=== PATIENT | female | born 1965 | race Caucasian/White ===

== ENCOUNTER 2018-05-06 08:15 | Outpatient (CLI) | payer OTHER ==
--- NOTE | 2018-05-06 10:55 | MRI ---
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 COMPARISON: None. TECHNIQUE: Multiplanar, multisequence MR images were obtained of the right wrist. FINDINGS: There are surface markers placed along the dorsal aspect of the wrist. There is prominent osteonecro sis and fragmentation of the lunate. No definite osteonecrosis is seen involving the capitate. Ther e is moderate collapse of the lunate. There is some mild proximal migration of the capitate. The sc apholunate and lunatotriquetral ligaments are intact. The extrinsic ligaments appear intact. There is some diffuse edema within the capitate, which may reflect reactive marrow edema. The scaphoid dani ears within normal limits. The carpal tunnel and its contents are normal appearing. The extensor te ndons appears within normal limits. A small amount of fluid is seen within the EDC extensor tendon s jese. The FCR and FCU tendons appear within normal limits. There is a nonspecific subchondral cyst like abnormality involving the radial aspect of the ring finger metacarpal head. The TFC appears in tact. IMPRESSION: 1. Osteonecrosis of the lunate with fragmentation. 2. Mild reactive edema in the capitate. 3. Mild extensor digitorum comminus tenosynovitis, which is likely reactive in nature. POS: [facility]
== END 2018-05-06 08:16 | disposition home or self-care (01) ==
LOC: MRI 08:15
PROVIDERS: ATTEND Orthopaedic Surgery Hand Surgery
DX: M93.1 Kienbock's disease of adults (principal); R60.0 Localized edema; M65.88 Other synovitis and tenosynovitis, other site

== ENCOUNTER 2018-05-13 10:26 | Day surgery (SDC) | payer OTHER ==
[2018-05-12 10:32] VITALS: BMI 25.1
[2018-05-13] MEDS ORDERED: Fentanyl 100 MCG/2 ML VIAL ONE ×2 (11:06→12:28)
[2018-05-13] MEDS ORDERED: Midazolam HCl 2 mg/2 ml Vial ONE (11:06)
--- NOTE | 2018-05-13 11:29 | RAD ---
PA AND LATERAL CHEST RADIOGRAPH: Date: 05-13-18 History: Pre-operative exam. Comparison: 03-29-10 FINDINGS: Cardiac silhouette and pulmonary vasculature are within normal limits. The lungs remain clear. Mild d egenerative changes are seen in the spine. IMPRESSION: No acute cardiopulmonary process. POS: [facility]
[2018-05-13 11:31] LABS: #Basophils 0.1 thou/uL (0.0-0.2); #Eosinphils 0.5 thou/uL (0.0-0.7); #Monocytes 0.4 thou/uL (0.11-0.59); #Neutrophils 3.4 thou/uL (1.40-6.50); %Basophils 1.2 % (0.0-1.0); %Eosinophils 7.2 % (0.0-10.0); %Lymphocytes 40.1 % (21.0-51.0); %Neutrophils 45.6 % (42.0-75.0); Hemoglobin 14.3 g/dL (12.0-16.0); Mean Corpuscular HGB CONC 34.5 g/dL (32.0-36.0); Mean Corpuscular Hemoglobin 30.6 pg (27.0-31.0); Mean Corpuscular Volume 88.8 fL (78.0-98.0); Mean Platelet Volume 6.9 fL (7.4-10.4); Platelet Count 294 thou/uL (130-400); RBC Distribution Width 11.8 % (11.5-14.5); Red Blood Cell (RBC) Count 4.68 mill/uL (4.20-5.40); White Blood Cell (WBC) Count 7.4 thou/uL (4.8-10.8)
[2018-05-13 11:56] LABS: Anion Gap 12 mmol/L (10-20); BUN (Urea Nitrogen) 21 mg/dL (9.8-20.1); Calc. Creatinine Clearance 112 mL/min (70-130); Calcium 9.9 mg/dL (7.8-10.44); Carbon Dioxide 23 mmol/L (22-29); Chloride 107 mmol/L (98-107); Estimated GFR-MDRD 84; Glucose 105 mg/dL (70-105); Potassium 4.4 mmol/L (3.5-5.1); Sodium 138 mmol/L (136-145)
[2018-05-13] MEDS ORDERED: HYDROmorphone 0.5 MG/0.5 ML SYRINGE ONE (12:28)
[2018-05-13 13:18] LABS: Bilirubin Negative (Negative); Blood, Urine Negative (Negative); Clarity CLEAR (Clear); Glucose, Urine (Dipstick) Negative (Negative); Leukocyte Moderate (Negative); Nitrite Negative (Negative); Protein, Urine (Dipstick) Negative (Neg-Trace); Specific Gravity, Urine 1.026 (1.002-1.036); Urobilinogen 0.2 mg/dL (0.2-1.0)
[2018-05-13 13:21] LABS: Bacteria/HPF 1+ HPF (None Seen); Hyaline Casts/LPF 0-3 HYALINE CAST LPF (0-3 Hyaline); Squamous Epithelial 0-3 HPF (0-3)
[2018-05-13] MEDS ORDERED: Sodium Chloride 0.9% 0 ML ONE (13:28)
[2018-05-13] MEDS ORDERED: Gentamicin 80 MG/2 ML VIAL ONE ×2 (13:28→17:17)
[2018-05-13] MEDS ORDERED: Bacitracin Zinc Ointment 30 gm TUBE ONE (13:53)
[2018-05-13 15:24] LABS: Bilirubin Negative (Negative); Blood, Urine Negative (Negative); Clarity CLEAR (Clear); Glucose, Urine (Dipstick) Negative (Negative); Leukocyte Negative (Negative); Nitrite Negative (Negative); Protein, Urine (Dipstick) Negative (Neg-Trace); Specific Gravity, Urine 1.027 (1.002-1.036); Urobilinogen 0.2 mg/dL (0.2-1.0); pH, Urine 5.5 (5.0-9.0)
[2018-05-13 15:26] LABS: Bacteria/HPF 3+ HPF (None Seen); Hyaline Casts/LPF 0-3 HYALINE CAST LPF (0-3 Hyaline); Pathc Cast-AUWi Flag 0.14 (0-2.49); RBC/HPF 0-3 HPF (0-3); Squamous Epithelial 0-3 HPF (0-3); WBC/HPF 0-3 HPF (0-3)
[2018-05-13] MEDS ORDERED: Ketorolac Tromethamine 30 MG/ML VIAL ONE (18:28)
--- NOTE | 2018-05-13 19:13 | RAD ---
RIGHT WRIST: 05/13/18 Series of nine fluoroscopic images from OR presented. INDICATION: Intraoperative imaging during internal fixation procedure. Right wrist osteotomy and bone graft proce dure. FINDINGS/IMPRESSION: Images demonstrate intraoperative changes at the wrist with hardware and surgical clips placed during operative procedure. POS: [facility]
--- NOTE | 2018-05-16 10:08 | OP ---
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 OPERATIVE FINDINGS: 1. Marked osteonecrosis with a necrotic hard bone occupying most of the lunate with fragmentation pa lmarly but the chondral surface of the radiolunate and lunate with capitate joint intact. 2. Already has some collapse of the bone, but not of the carpus itself. PROCEDURES PERFORMED: 1. Open lunate debridement. 2. Open vascularized bone graft harvest from the 4-5 extra compartmental artery system and the bone graft size was 2.0 cm long x 6 mm wide with excellent vascular pedicle, then maintained itself during the transfer after implantation. 3. Joint unloading via scaphocapitate pinning, adri under interaction. 4. C-arm supervision. ANESTHESIA: Excellent block along with general endotracheal anesthesia. Intraoperatively, post justin ent had a small amount of bacteria in her urine, which was treated by gentamicin but she did not have nitrites or other indicatives of active urinary tract infection with catheter urinalysis. URINE OUTPUT: Diggs throughout, 750 mL. TOURNIQUET TIME: 120 minutes. BLOOD LOSS: 25 mL. DESCRIPTION OF PROCEDURE: After successful block with only minimal general anesthesia, patient's miller b was prepped and draped. We did not use Marcaine because of block. Then brought the C-arm into the field confirmed that she had Dr. Giang, who operating the correct khadra e with his right, to consent and a time out as well as the records. We also noted the joint was essentially level as we seen in the last radiographs in clinic and althou consented for a shortening osteotomy, this may not be indicated if we going to achieve an excellen t vascularized bone graft. We then exsanguinated the limb only with elevation to achieve somewhat of a venous tourniquet, so we could better identify the vessels. We then made a zigzag incision centered over the space between Li ster's tubercle and the ulnar styloid, complicated the skin, subcutaneous tissue, and opened the reti naculum over the center of the extensor digiti minimi, then dissected it really to expose the fourth dorsal compartment as well. Here, on the very radial aspect of the base of the floor of the fifth do rsal compartment, we found the fifth extra compartmental arterial branch and followed it to where it made a Y, where it made a connection into the anterior interosseous. Then from here, we saw a shorte r version that went into the base of the bone of the ulnar aspect of the fourth dorsal compartment. We removed all compartments. Contents of the fourth ray of the common visualized the extensor pollic is longus were protected, and then began almost 1-hour slow careful harvesting of bone graft with rose ntenance of a vascular pedicle. Once we had done this, we then elevated the pedicle completely from its bed, it measured almost 2 cm long, had excellent bleeding even with the venous tourniquet, and th en we were able to put it back in its bed as we approached the lunate itself. A small V-shaped capsulotomy was performed beginning just radial to the pedicle distal base, and we t hen identified the entire lunate, scapholunate joint and the scaphocapitate joint as well as the radi us lunate joint. The lunate surface with all three articulations and excellent chondral surface, but it could immediately be seen on this dorsum, there was some necrotic indentations. Using the C-arm immediately, we placed a guidewire for 3-0 cannulated screw into a central position in the frontal an d sagittal plane. We noted the fragmentation palmarly and did not violate it. We then drilled 2.5, 3.0, then used a 3.5 drill bit under T-handle control as to radiographic evidenc e to create a channel. From here, we made sure, we did not violate mid carpal joint and therefore we had more loose necrotic bone to remove via curet debridement. Once this was done, we then took some bone from the bed of the harvested bone graft, placed it deep in the cavity where the large bone gra ft did not fit, then placed some more dorsal and palmar to this graft. We then placed the graft in p alec position with thinnest part now, widest part at the top, buried approximately 1 mm into the cavi ty of the lunate, observed ithe pedicle and still had excellent refill and the bone was still bleedin g. We already had a deflated tourniquet at this point, obtain hemostasis, and left a hole in the capsule of approximately 5 mm, so that the pedicle would not be compressed. We then closed the capsule gent ly with interrupted [id number] #[id number] Ethibonds and an OS-4 needle. We then took some harvested bone graft from the cadaver bone soaked in the blood for [address] aced it in the defect, created by the extra-compartmental vascularized bone graft harvest. Now, we h ad this completely filled and radiograph showed that it was filled appropriately without fracture. W e have determined because now, we visualized the third time that the joint was level, so we did not w ant to create a defect, and therefore we then placed the arm back into inline traction, from here wit h approximately 10-15 pounds of pressure distracted, were placed 4-5 K-wires from the scaphoid to the capitate, unload the capitolunate joint and then the patient was prepared for this closure. We irrigated the wound, closed the retinaculum with a 2-0 Vicryl undyed, closed the subcutaneous tiss ue with 3-0 undyed Monocryl, and then closed the epidermis with interrupted 4-[address]. [address] then [address] d the arm back in traction and completed the scaphocapitate pins x2 with excellent form of the sagitt al plane position. Bulky dressing was applied sterilely. The patient had a sugar-tong splint applie d, left the operating room without evidence of anesthetic or operative complication.
== END 2018-05-13 19:40 | disposition home or self-care (01) ==
LOC: SDC 10:26
PROVIDERS: ATTEND Orthopaedic Surgery Hand Surgery
PROC: 0XU Anatomical Regions, Upper Extremities, Supplement (ICD-10-PCS; principal; 2018-05-13)
PROC: 0PBH0ZZ Excision of Right Radius, Open Approach (ICD-10-PCS; principal; 2018-05-13)
DX: M92.211 Osteochondrosis (juvenile) of carpal lunate [Kienbock], right hand (principal); I10 Essential (primary) hypertension; M19.90 Unspecified osteoarthritis, unspecified site; G43.909 Migraine, unspecified, not intractable, without status migrainosus; Z79.899 Other long term (current) drug therapy
CPT/HCPCS: 36415; 71046; 76001; 80048; 81003; 81015; 85025; 87077; 87086; 87186; 93005; 93010; J1170; J1580; J1885; J2250; J3010; J3490; J7050

== ENCOUNTER 2018-07-19 06:33 | Day surgery (SDC) | payer OTHER ==
[2018-07-18 11:02] VITALS: BMI 24.7
[2018-07-19 07:35] LABS: #Basophils 0.1 thou/uL (0.0-0.2); #Eosinphils 0.4 thou/uL (0.0-0.7); #Lymphocytes 3.2 thou/uL (1.20-3.40); #Monocytes 0.6 thou/uL (0.11-0.59); #Neutrophils 4.5 thou/uL (1.40-6.50); %Basophils 1.1 % (0.0-1.0); %Lymphocytes 36.8 % (21.0-51.0); %Monocytes 6.2 % (0.0-10.0); %Neutrophils 50.9 % (42.0-75.0); Hemoglobin 13.5 g/dL (12.0-16.0); Mean Corpuscular HGB CONC 34.1 g/dL (32.0-36.0); Mean Corpuscular Hemoglobin 30.9 pg (27.0-31.0); Mean Corpuscular Volume 90.6 fL (78.0-98.0); Mean Platelet Volume 7.1 fL (7.4-10.4); Platelet Count 276 thou/uL (130-400); RBC Distribution Width 11.2 % (11.5-14.5); Red Blood Cell (RBC) Count 4.36 mill/uL (4.20-5.40); White Blood Cell (WBC) Count 8.8 thou/uL (4.8-10.8)
[2018-07-19] MEDS ORDERED: CEFAZOLIN/Water 2 GM/20 ML SYRINGE ONE (07:35)
[2018-07-19 07:53] LABS: Anion Gap 11 mmol/L (10-20); BUN (Urea Nitrogen) 22 mg/dL (9.8-20.1); Calc. Creatinine Clearance 102 mL/min (70-130); Calcium 9.1 mg/dL (7.8-10.44); Carbon Dioxide 24 mmol/L (22-29); Chloride 107 mmol/L (98-107); Estimated GFR-MDRD 77; Glucose 101 mg/dL (70-105); Potassium 4.1 mmol/L (3.5-5.1); Sodium 138 mmol/L (136-145)
[2018-07-19 08:05] LABS: Bilirubin Negative (Negative); Blood, Urine Negative (Negative); Clarity CLEAR (Clear); Glucose, Urine (Dipstick) Negative (Negative); Leukocyte Negative (Negative); Nitrite Negative (Negative); Protein, Urine (Dipstick) Negative (Neg-Trace); Urobilinogen 0.2 mg/dL (0.2-1.0); pH, Urine 5.5 (5.0-9.0)
[2018-07-19 08:09] LABS: Bacteria/HPF None Seen HPF (None Seen); Hyaline Casts/LPF 0-3 HYALINE CAST LPF (0-3 Hyaline); Pathc Cast-AUWi Flag 0.29 (0-2.49); RBC/HPF 0-3 HPF (0-3); Squamous Epithelial 0-3 HPF (0-3)
[2018-07-19] MEDS ORDERED: Sodium Chloride 0.9% 10 ML ONE (08:32)
[2018-07-19] MEDS ORDERED: Bacitracin Zinc Ointment 30 gm TUBE ONE (08:32)
[2018-07-19] MEDS ORDERED: Bupivacaine PF 0.5% 30 ML VIAL ONE (08:32)
[2018-07-19] MEDS ORDERED: Betamet Acet/Betamet Na Ph 30 MG/5 ML VIAL ONE (08:32)
[2018-07-19] MEDS ORDERED: Fentanyl 100 MCG/2 ML VIAL ONE (08:42)
[2018-07-19] MEDS ORDERED: Midazolam HCl 2 mg/2 ml Vial ONE (08:45)
[2018-07-19] MEDS ORDERED: Ketorolac Tromethamine 30 MG/ML VIAL ONE (10:01)
--- NOTE | 2018-07-19 10:45 | OP ---
DATE OF PROCEDURE: 07/19/2018 SURGEON: Dr. Nando Bennett PREOPERATIVE DIAGNOSIS: Painful deep wires, two different incisions, both scaphocapitate wires right wrist. PROCEDURE: 1. Removal of scaphocapitate wires two separate incisions right wrist. 2. C-arm supervision with C-arm. SPECIMEN REMOVED: Two wires. TOURNIQUET TIME: 5 minutes. BLOOD LOSS: 5 mL. 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 Height being restored . DESCRIPTION OF PROCEDURE: After successful conscious sedation by Missael FORTE, from [facility] [facility], the limb was prepped and draped. Tourniquet inflated to 225 mmHg pressure and we gave the patien t 8 mL 0.5% Marcaine block. We then used the C-arm to identify the wires, made a small 2 mm incision over first the more proximal wire removed and then a 2-3 mm incision over the distal wire and at bot h sites we found a large bursa. We removed the second wire. The bursa was slowly removed. We released the tourniquet. C-arm confirmed that not only were the wires gone, there is no fracture, and the intercarpal alignment maintained itself. The patient then had the incision closed with inte rrupted 4-0 chromic suture, a soft dressing applied and the patient left the operating room to recove ry room without evidence of anesthetic or operative complication.
--- NOTE | 2018-07-19 10:59 | RAD ---
RIGHT WRIST 1 VIEW: Date: 07/19/18 HISTORY: Hardware removal. FINDINGS: Multiple surgical clips are noted over the wrist. There is again noted to be extensive sclerosis of t he lunate bone, evidence for avascular necrosis with some collapse. No significant residual hardware pins. IMPRESSION: Marked sclerosis of the lunate bone. Evidence for avascular necrosis with some collapse. Numerous roberto gical clips overlying the region of the wrist. Bone demineralization. POS: [facility]
[2018-07-19] MEDS ORDERED: Lidocaine 1% PF 5 ML VIAL ONE (14:36)
[2018-07-19] MEDS ORDERED: PROPOFOL 200 MG/20 ML VIAL ONE (14:36)
== END 2018-07-19 10:20 | disposition home or self-care (01) ==
LOC: SDC 06:33 → EEVIPCON 06:33 → SDC 10:20
PROVIDERS: ATTEND Orthopaedic Surgery Hand Surgery
PROC: 0RPQ04Z Removal of Internal Fixation Device from Right Carpal Joint, Open Approach (ICD-10-PCS; principal; 2018-07-19)
DX: T84.84XA Pain due to internal orthopedic prosthetic devices, implants and grafts, initial encounter (principal); M92.211 Osteochondrosis (juvenile) of carpal lunate [Kienbock], right hand; I10 Essential (primary) hypertension; M19.90 Unspecified osteoarthritis, unspecified site; G43.909 Migraine, unspecified, not intractable, without status migrainosus; Z79.899 Other long term (current) drug therapy; Z98.890 Other specified postprocedural states
CPT/HCPCS: 36415; 76001; 80048; 81001; 85025; 96372; 96374; A4216; J0702; J1885; J2001; J2250; J2704; J3010; J3490; S0020